=== PATIENT | female | born 1990 | race Caucasian/White ===

== ENCOUNTER 2019-05-12 10:07 | Inpatient (IN) ==
[2019-05-12] MEDS ORDERED: Oxytocin 20 units/ LR 1000 mL 20 UNIT/1,000 ML BAG IVC ONE (10:33)
[2019-05-12] MEDS ORDERED: Famotidine 20 MG/2 ML VIAL IVP ONE (10:33)
[2019-05-12] MEDS ORDERED: Metoclopramide 10 MG/2 ML VIAL IVP ONE (10:33)
[2019-05-12] MEDS ORDERED: Ringers Solution, Lactated 1,000 ML IVC ONE (10:33)
[2019-05-12] MEDS ORDERED: CeFAZolin Syr 3,000MG/30 ML 3,000 MG/30 ML SYRINGE IVPB ONE (10:33)
[2019-05-12] MEDS ORDERED: Naloxone 0.4 MG/ML INJ IVP PRN (10:44)
[2019-05-12] MEDS ORDERED: Famotidine 20 MG/2 ML VIAL IVP PRN (10:44)
[2019-05-12] MEDS ORDERED: Metoclopramide 10 MG/2 ML VIAL IVP PRN (10:44)
[2019-05-12] MEDS ORDERED: Ondansetron 4 MG/2 ML VIAL IVP PRN (10:44)
[2019-05-12] MEDS ORDERED: Oxytocin 20 units/ LR 1000 mL 20 UNIT/1,000 ML BAG IVC SCH (10:45)
[2019-05-12] MEDS ORDERED: Ringers Solution, Lactated 1,000 ML IVC SCH (10:45)
[2019-05-12] MEDS ORDERED: D5% in Lactated Ringers 1,000 ML IVC SCH (10:45)
--- NOTE | 2019-05-12 10:51 | OB/GYN History & Physical ---
Date of Encounter: 05/12/19 Time of Encounter: 10:47 Assessment and Plan (1) 39 weeks gestation of Current visit: Yes Status: Acute (2) Obesity complicating in third trimester Current visit: Yes Status: Acute (3) complicated by subutex maintenance, antepartum Current visit: Yes Status: Acute (4) Encounter for planned induction of labor Current visit: Yes Status: Acute Lyon-cytotec indution is planned for this term patient with obesity who is now cephalic with EFM in anticipation of vaginal delivery History of Present Illness Chief complaint: Patient presents for , primary, for breech HPI: Ms. South is a 29 year old female G1 at 39 1/7 weeks presents to labor and delivery for primary for breech. She denies any contractions, vaginal bleeding, or leaking fluid. She reports excellent movement. SHe has been having more vaginal pressure she has noticed. Her is complicated by marijuana and suboxone use prior to the . She has since entered the Baby Cent[facility] recovery and is doing well. Past Med Surg Social Fam HX - Past Medical History Source: patient Medical history: non-contributory Additional medical history: chronic back pain Psychiatric history: anxiety, depression - Past Surgical History Surgical History: orthopedic, other (laminectomy ), bariatric surgery Additional surgical history: cyst removed from wrist - Social History Smoking Status: Current every day smoker Smokeless Tobacco Status: Yes (vapor cigs) Drug use: marijuana, prescription drug abuse Current living situation: Home - Independent Activity Level: Independent ambulation Obstetrical History - Pregnancies : 1 Medications and Allergies Buprenorphine HCl [Subutex] 8 mg SL BID 05/12/19 [History] Docusate [Colace] 100 mg PO BID 05/12/19 [History] Pnv95/Ferrous Fumarate/FA [ Vitamin Tablet] 1 each PO DAILY 05/12/19 [History] Allergy/AdvReac Type Severity Reaction Status Date / Time NSAIDS (Non-Steroidal AdvReac See Verified 04/07/15 11:58 Anti-Inflamma Comments tramadol AdvReac Vomiting Verified 04/07/15 11:58 Review of System OB All systems PM: reviewed and no additional remarkable complaints except as stated - Constitutional Constitutional ROS IM: no anorexia, no chills, no fever(s) - Gastrointestinal Gastrointestinal: no abdominal pain, no nausea, no vomiting - Menstruation Menstruation: amenorrhea Exam - Constitutional Constitutional: well developed, well nourished, no acute distress, obese - HEENT HEENT: EOMI, Mucus Membranes Moist - Lungs Respiratory exam: CTAB - Cardiovascular Cardiovascular exam: RRR - Abdomen Abdomen: Present: bowel sounds normal, gravid, non tender - Vulva Vulva: bilateral: normal - Vagina Vagina: Present: normal moisture - Cervix Dilation: 1 Effacement: 0 Station: -4 - Anus/Rectum Anus/Rectum: Present: normal perianal skin - Comments Comments: Bedside ultrasound confirms cephalic presentation
[2019-05-12 11:18] LABS: Basophils % 0.2 %; Eosinophils % 0.4 %; Hematocrit 40.9 % (35.3-44.9); Hemoglobin 13.7 g/dL (11.5-15.4); Immature Granulocytes % 0.6 % (0-4); Lymphocytes # 1.5 K/mcL (0.6-4.6); Mean Corpuscular HGB Conc 33.5 g/dL (31.6-35.5); Mean Corpuscular Hemoglobin 29.8 pg (28.0-33.3); Mean Corpuscular Volume 88.9 fL (83.0-100.0); Mean Platelet Volume 12.9 fL (9.4-12.4); Monocytes % 10.2 %; Neutrophils # 7.4 K/mcL (1.6-8.9); Platelet Count 183 K/mcL (140-400); Red Cell Distribution Width 13.9 % (11.5-14.5); Segmented Neutrophils % 73.6 %; White Blood Count 10.1 K/mcL (4.3-11.1)
[2019-05-12 11:32] LABS: Amphetamine Screen,Urine Negative ng/mL (Cutoff=1000); Barbiturate Screen,Urine Negative ng/mL (Cutoff=200); Benzodiazepines Screen,Urine Negative ng/mL (Cutoff=200); Cannabinoid Screen,Urine Negative ng/mL (Cutoff = 50); Cocaine Screen,Urine Negative ng/mL (Cutoff= 300); Opiate Screen,Urine Negative ng/mL (Cutoff=300); Phencyclidine Screen,Urine Negative ng/mL (Cutoff=25)
[2019-05-12] MEDS ORDERED: *HR* FentaNYL (PF) 100 MCG/2 ML VIAL IVP PRN (11:45)
[2019-05-12] MEDS ORDERED: *HR* Buprenorphine HCl 8 MG TAB.SUBL SL SCH ×2 (11:46→21:00)
--- NOTE | 2019-05-12 12:36 | OB Labor Progress Note ---
Date of Encounter: 05/12/19 Time of Encounter: 12:34 Labor Progress Note - Subjective Subjective: Patient denies any concerns - Cervix Cervix: /-3 - Heart Tones Heart Tones: 120's category 1 - [place]: patient denies any contractions. - Interventions Interventions: Double Cook catheter placed with 60 ml intrauterine and 40 ml in the vaginal balloon
[2019-05-12] MEDS: miSOPROStol 25 MCG TABLET PO SCH ×2 (12:40→16:50)
--- NOTE | 2019-05-12 13:57 | Anesthesia Evaluation PreOp ---
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 History: Paresis (LLE), Other (s/p L3-L5 laminectomy w/ residual LLE radiculopathy and chronic lumbar spine pain) Other Medical History: Other (anxiety/depression) Anesthesia History: No Prior Anesthetic Complications (never had NA; denies personal and family h/o GA complications), Past Anesthesia (bariatric surgery, L3-L5 laminectomy, cyst removal from wrist) : Yes Alcohol Use: none Drug use: marijuana, prescription drug abuse Medications and Allergies Buprenorphine HCl [Subutex] 8 mg SL BID 05/12/19 [History] Docusate [Colace] 100 mg PO BID 05/12/19 [History] Pnv95/Ferrous Fumarate/FA [ Vitamin Tablet] 1 each PO DAILY 05/12/19 [History] Allergy/AdvReac Type Severity Reaction Status Date / Time NSAIDS (Non-Steroidal AdvReac See Verified 05/12/19 11:45 Anti-Inflamma Comments tramadol AdvReac Vomiting Verified 05/12/19 11:45 - Meds/Allergy Pre-op Review Medications Reviewed: Yes Allergies Reviewed: Yes Beta Blockers on Current Med List: No Anesthesia Results - Labs 05/12/19 10:55 Anesthesia Exam 137/91, HR 61 O2 Sat Height 1.65 m Weight 128.99 kg NPO (# of Hours): solids > 8hrs Pain Scale: 0 Pain Scale Used: Numeric (1 - 10) - HEENT Pupil (Motor): Pupils equal Mallampati: II Teeth: Normal Oral Opening: Greater than 3 - DIRECTOR OF CARDIAC REHABILITATION LOC: Oriented DIRECTOR OF CARDIAC REHABILITATION Motor: Normal RUE, Normal LUE, Normal RLE, Normal Face, Deficit LLE DIRECTOR OF CARDIAC REHABILITATION Sensory: Normal: RUE, LUE, RLE, LLE, Face - Cardiac Rhythm: Regular Murmur: None - Pulmonary Breath Sounds: bilateral Clear Respiratory Effort: Symmetrical Anesthesia Assess/Plan ASA Score: 3 Level of consciousness: Cooperative, Oriented, Tranquil Anesthetic Plan: Epidural Autologous Blood: No Monitoring Plan: Standard Monitors Recovery Plan: Other
[2019-05-12] MEDS ORDERED: Bupivacaine-MPF 0.25% 10 ML VIAL EP ONE (13:58)
[2019-05-12] MEDS ORDERED: EPHEDrine 50 MG/ML VIAL IVP PRN (13:58)
[2019-05-12] MEDS ORDERED: *HR* FentaNYL (PF) 100 MCG/2 ML VIAL EP ONE (13:58)
[2019-05-12] MEDS ORDERED: Epidural Premix (fent/bupiv) 110 ML EP SCH (14:00)
[2019-05-12] MEDS ORDERED: Bupivacaine-MPF 0.25% 10 ML VIAL ONE (14:22)
[2019-05-12] MEDS ORDERED: *HR* FentaNYL (PF) 100 MCG/2 ML VIAL ONE (14:22)
[2019-05-12] MEDS ORDERED: Nicotine 21 MG PATCH.TD24 TD SCH (16:00)
[2019-05-12] MEDS: Acetaminophen 325 MG TABLET PO SCH (17:08)
--- NOTE | 2019-05-12 22:33 | Anesthesia Procedures ---
Date of Encounter: 05/12/19 Time of Encounter: 22:26 Procedures: Anesthesia - Epidural/Spinal Patient ID/Chart reviewed: Yes Patient examined: Yes OB Eval: Gestational age: 39 weeks 1 day OB Eval: : 1 OB Eval: Hx Para: 0 OB Eval: Dilated at (cm): 5 OB Eval: Contractions: Non-stressed pattern Consent Obtained: Yes Supplemental Oxygen: None/Room Air Site Prep: Aseptic Technique, Sterile prep and drape, 0.5% Chlorhexidine/Alcohol Patient position: upright Local Anesthetic: Lidocaine 1% Amount of Local Anesthetic used: 3 Touhy Needle Gauge: 18 Touhy Needle Depth (cm): 7 Catheter Depth at Skin (cm): 12 Test Dose (1.5% Lido + Epi): Volume given (mls): 3 Test Dose Result: Positive Loading Dose: 0.25% Marcaine (mls): 1 Loading Dose: Fentanyl (mcg): 10 Loading Dose Administered: Thru Catheter Infusion Med: 0.125% Bupivacaine w/ 2 mcg/ml Fentanyl Infusion Rate (mls/hr): 1 (actually 1.5mL/hr w/ demand bolus of 0.5mL q30min PRN) Catheter Secured in Place: Tegaderm, Tape Interspace Used: L2-L3 Loss of Resistance (KIMMIE): No Blood: No CSF: Yes Paresthesia: No Procedure: was unable to "feel" ligaments with midline approach. Very little resistance to needle advancement until patient felt bilateral LE paresthesias. Stylet removed and slow trickle of clear fluid noted coming out of the hub of [place]. Patient reports BLE paresis and paresthesia in response to only 3mL of test dose. Catheter placed and labeled extensively as "Intrathecal catheter". ELA Duran notified and instructed to pass information along in report that catheter should remain in place for 24 hours after delivery and to minimize pushing during 2nd stage of labor. Patient counseled on S&S of PDPH and ways to minimize severity such as leaving catheter in place, early ambulation after delivery, fluid intake, OTC analgesics, caffeine, and to decrease visual and auditory stimulation should a MCCORD develop. Also instructed patient that if these conservative measures fail, an epidural blood patch may be indicated. Pt verbalized understanding. VSS. Patient tolerated procedure well. Vitals + FHT's: See Renee MAHMOOD's electronic records for VS entry
--- NOTE | 2019-05-12 23:29 | OB Labor Progress Note ---
Date of Encounter: 05/12/19 Time of Encounter: 23:26 Labor Progress Note - Subjective Subjective: Patient is comfortable after her epidural - Cervix Cervix: 5/80/-3 - Heart Tones Heart Tones: 120, variable decels noted with contractions - [place]: q 2 minutes - Interventions Interventions: AROM with clear fluid. IUPC and FSE placed without difficulty.
--- NOTE | 2019-05-13 01:22 | Anesthesia Progress Note ---
Date of Encounter: 05/13/19 Time of Encounter: 01:19 Anesthesia Note - Note Note: Called to patient bedside to evaluate breakthrough pain. Patient reports that her BLE blockade is gone and that she is now feeling her contractions. Catheter now noted to be at 11cm jefe at skin. intermittent boluses q5-10min given for a total of 90mcg fentanyl & 10mL of 0.125% bupivicaine. Infusion rate also increased with each bolus to final setting of 10mL/hr & demand bolus of 4mL q 30min PRN. VSS. Patient reports that the analgesia is sufficient enough for her to breathe through her contractions. 05/13/19 01:19
--- NOTE | 2019-05-13 03:07 | Anesthesia Progress Note ---
Date of Encounter: 05/13/19 Time of Encounter: 02:15 Anesthesia Note - Note Note: called to patient bedside for breakthrough pain; catheter now appears to be at 10cm jefe at skin; despite additional 5mL of 1.5% lid0 w/ 1:200k epinephrine, patient reports no improvement in pain; decision made to remove catheter; confirmed blue tip intact. VSS 05/13/19 03:06
--- NOTE | 2019-05-13 03:10 | Anesthesia Procedures ---
Date of Encounter: 05/13/19 Time of Encounter: 03:08 Procedures: Anesthesia - Epidural/Spinal Patient ID/Chart reviewed: Yes Patient examined: Yes OB Eval: : 1 OB Eval: Hx Para: 0 OB Eval: Dilated at (cm): 6 OB Eval: Contractions: Non-stressed pattern Consent Obtained: Yes Supplemental Oxygen: None/Room Air Site Prep: Aseptic Technique, Sterile prep and drape, 0.5% Chlorhexidine/Alcohol Patient position: upright Local Anesthetic: Lidocaine 1% Amount of Local Anesthetic used: 5 Touhy Needle Gauge: 18 Touhy Needle Depth (cm): 8 Catheter Depth at Skin (cm): 15 Test Dose (1.5% Lido + Epi): Volume given (mls): 5 Test Dose Result: Negative Loading Dose: 0.25% Marcaine (mls): 5 Loading Dose Administered: Thru Catheter Infusion Med: 0.125% Bupivacaine w/ 2 mcg/ml Fentanyl Catheter Secured in Place: Tegaderm, Tape Interspace Used: L2-L3 Loss of Resistance (KIMMIE): Yes Blood: No CSF: No Paresthesia: No Procedure: successful on 2nd attempt (first attempt at L3/4); patient tolerated procedure well; VSS Vitals + FHT's: see Renee MAHMOOD's electronic records for VS entry
[2019-05-13] MEDS ORDERED: 0.9 % Sodium Chloride 500 ML ONE (04:36)
[2019-05-13] MEDS ORDERED: 0.9 % Sodium Chloride 1,000 ML ONE (05:20)
[2019-05-13] MEDS: Acetaminophen 325 MG TABLET PO SCH (05:31)
[2019-05-13] MEDS ORDERED: Oxytocin 20 units/ LR 1000 mL 20 UNIT/1,000 ML BAG IVC ONE (07:04)
[2019-05-13] MEDS ORDERED: Oxytocin 20 units/ LR 1000 mL 20 UNIT/1,000 ML BAG IVC SCH ×2 (07:15→12:04)
[2019-05-13] MEDS ORDERED: Lidocaine/EPI 1:200k 2% PF 20 ML VIAL ONE (07:56)
[2019-05-13] MEDS ORDERED: *HR* Phenylephrine 10 MG/ML VIAL ONE (07:56)
[2019-05-13] MEDS ORDERED: Lidocaine -MPF 2% 5 ML VIAL ONE (07:57)
--- NOTE | 2019-05-13 09:00 | OB/GYN Procedure Note ---
Section - Date of procedure: 05/13/19 Preop diagnosis: category 3 FHT tracing Post-op diagnosis: same Procedure: section, primary low transverse Surgeon: Dalia Mandel Blood Loss: 500 Was there an first assistant present: Yes Inspector Returned Materials: Clemencia Weir Anesthesiologist: Carlie Jeffers Psychologist: Darrel Bhat Anesthesia Type: Epidural section complications: none Disposition: L&D Recovery Room Specimens: Cord gasses - Infant (s) Infant A Delivery Date: 05/13/19 Delivery Time: 08:01 Presentation: vertex Route of delivery: Gender: Male Viability: Viable Pounds: 5 Ounces: 6 at 1 minute: 9 at 5 minutes: 9 Specimens collected: cord blood, venous cord gases, arterial cord gases Placenta: spontaneous Cord: 3 umbilical vessels - Narrative Narrative: Patient was taken to the operative suite and her epidural was dosed.. She was then prepped and draped in normal sterile fashion in the dorsal supine position. Timeout was then performed. Antibiotics were given by anesthesia. SCDs are on and active. Pfannenstiel skin incision is then made and carried through to underlying layer of fascia with the Bovie. The fascia was then incised in the midline and incision extended laterally with the Brunson scissors. The fascia was tented up and dissected off the rectus muscles sharply. The rectus muscles were in the midline and the peritoneum was tented up and entered sharply with the Metzenbaum scissors. The peritoneal incision was then extended bluntly. The bladder blade was then inserted and the vesicouterine peritoneum was identified. A low transverse uterine incision was then made. The vertex was brought to the incision and the was delivered using fundal pressure. There was no nuchal cord. Cord was clamped and cut. Infant was handed to waiting nursery staff. Placenta delivered spontaneously complete and intact with a three-vessel cord. The uterus was cleared of all clots and debris using moist laparotomy sponge. The uterine incision was then closed using 0 Vicryl in a running locked fashion. A second layer of the same suture was used to obtain excellent hemostasis. The abdomen was then cleared of all clots and debris using copious irrigation. The fascial incision was then closed using 0 PDS looped in a running fashion. The skin was closed using 4-0 Vicryl in a subcuticular fashion. Steri-Strips and Mónica dressing are then placed. Mother and infant taken to recovery in stable condition.
[2019-05-13] MEDS ORDERED: Metoclopramide 10 MG/2 ML VIAL IVP PRN (12:04)
[2019-05-13] MEDS ORDERED: Sennosides 8.6 MG TABLET PO PRN (12:04)
[2019-05-13] MEDS ORDERED: Simethicone 80 MG TAB.CHEW PO PRN (12:04)
[2019-05-13] MEDS ORDERED: Ondansetron 4 MG/2 ML VIAL IVP PRN (12:04)
[2019-05-13] MEDS ORDERED: *HR* OxyCODONE/APAP 5/325 TABLET PO PRN (12:04)
[2019-05-13] MEDS ORDERED: Naloxone 0.4 MG/ML INJ IVP PRN (12:04)
[2019-05-13] MEDS: cephALEXin 500 MG CAPSULE PO SCH ×2 (13:17→20:19)
[2019-05-13] MEDS: Acetaminophen 325 MG TABLET PO PRN ×2 (13:17→20:19)
[2019-05-13] MEDS: *HR* Buprenorphine HCl 8 MG TAB.SUBL SL SCH ×2 (13:18→20:20)
[2019-05-13] MEDS: metroNIDAZOLE 500 MG TABLET PO SCH ×2 (13:19→20:18)
[2019-05-13] MEDS: Prenatal Vit/FA 1 EACH TABLET PO SCH (13:21)
[2019-05-13] MEDS: *HR* OxyCODONE Immed Rel 5 MG TABLET PO PRN ×2 (16:57→20:20)
[2019-05-13] MEDS: Nicotine 21 MG PATCH.TD24 TD SCH (17:01)
[2019-05-13] MEDS: *HR* Enoxaparin 40 MG/0.4 ML SYRINGE SQ SCH (20:21)
--- NOTE | 2019-05-14 06:27 | Anesthesia Evaluation Post Op ---
Date of Encounter: 05/14/19 Time of Encounter: 11:00 - Vital Signs Vital Signs: Vital Signs Temperature 97.4 F L 05/13/19 11:00 Pulse Rate 58 05/13/19 11:00 Respiratory Rate 14 05/13/19 11:00 Blood Pressure 117/71 05/13/19 11:00 O2 Sat by Pulse Oximetry 100 05/13/19 11:00 Temperature 98.1 F 05/14/19 03:31 Pulse Rate 67 05/14/19 03:31 Respiratory Rate 16 05/14/19 03:31 Blood Pressure 126/83 05/14/19 03:31 O2 Sat by Pulse Oximetry 97 05/14/19 03:31 - Lungs Lungs: Clear Ascult./Percussion - Airway Airway: Non-obstructed - Cardiovascular Regular Rate - Mental Status Mental Status: Alert & Oriented, Answers Appropriately - Pain Pain Scale: 3 Pain Scale used: Numeric (1 - 10) - Nausea Vomiting Nausea Vomiting: Not Present - Hydration Hydration: NPO, Lyon catheter - Discharge PostOp Status: Transfer Patient to floor
[2019-05-14] MEDS: *HR* OxyCODONE Immed Rel 5 MG TABLET PO PRN ×2 (06:34→14:44)
[2019-05-14] MEDS: Nicotine 21 MG PATCH.TD24 TD SCH (08:30)
[2019-05-14] MEDS: Prenatal Vit/FA 1 EACH TABLET PO SCH (08:30)
[2019-05-14] MEDS: cephALEXin 500 MG CAPSULE PO SCH ×3 (08:31→20:31)
[2019-05-14] MEDS: metroNIDAZOLE 500 MG TABLET PO SCH ×2 (08:31→20:31)
[2019-05-14] MEDS: *HR* Buprenorphine HCl 8 MG TAB.SUBL SL SCH ×2 (08:32→20:32)
[2019-05-14] MEDS: *HR* Enoxaparin 40 MG/0.4 ML SYRINGE SQ SCH ×2 (08:32→20:33)
--- NOTE | 2019-05-14 11:05 | OB/GYN Progress Note ---
Date of Encounter: 05/14/19 Time of Encounter: 11:01 - Assessment and Plan (1) Status post primary low transverse section Current Visit: Yes Status: Acute Meeting all day 1 milestones Continue routine care Anticipate discharge to guest tomorrow Subjective - Subjective Principal diagnosis: s/p PLTCS Interval history: Feeling well. Out of bed without dizziness. Some abdominal discomfort-using binder. Cramping minimal, using ibuprofen and Percocet. every 2- 3 hours. Some nipple soreness. Voiding without difficulty. Passing flatus, no BM yet. Tolerating clear liquid diet. Patient reports: appetite normal, voiding normally, pain well controlled, ambulating normally, nauseated [place]: doing well, bottle feeding Objective - Vital Signs Latest vital signs: Vital Signs Temp Pulse Resp BP Pulse Ox 05/14/19 08:06 98 F 75 16 124/84 95 05/14/19 03:31 98.1 F 67 16 126/83 97 05/13/19 23:55 98.3 F 72 16 118/81 95 05/13/19 19:30 98.4 F 66 14 132/84 98 05/13/19 15:42 97.9 F 55 16 129/77 05/13/19 14:00 98.5 F 55 16 128/66 05/13/19 13:00 98.6 F 56 16 133/81 05/13/19 12:45 16 05/13/19 12:00 98.1 F 55 16 130/83 05/13/19 11:43 97.7 F 54 16 122/73 05/13/19 11:30 97.7 F 54 16 122/73 Intake and Output 05/13/19 05/14/19 05/14/19 23:59 07:59 15:59 Intake Total 240 / 240 800 / 800 Output Total 1850 / 2650 2100 / 2300 200 / 2300 Balance -1610 / -2410 -1300 / -1500 -200 / -1500 Intake: Oral 240 / 240 800 / 800 Output: Urine 200 / 200 Catheter 1850 / 2650 2099 / 2100 Other: Meal Dinner Percent of Meal Consumed 100% - Exam Lungs: bilateral: normal Chest: Normal S1, Normal S2 Extremities: Present: normal Abdomen: Present: normal appearance, soft Incision: Present: normal, dry, intact, dressed Uterus: Present: normal, firm Fundal Height: 2 (below and midline)
[2019-05-14] MEDS: Acetaminophen 325 MG TABLET PO PRN (11:38)
[2019-05-15] MEDS: *HR* OxyCODONE Immed Rel 5 MG TABLET PO PRN ×3 (02:01→11:00)
[2019-05-15] MEDS: cephALEXin 500 MG CAPSULE PO SCH (08:37)
[2019-05-15] MEDS: Prenatal Vit/FA 1 EACH TABLET PO SCH (08:37)
[2019-05-15] MEDS: *HR* Buprenorphine HCl 8 MG TAB.SUBL SL SCH (08:37)
[2019-05-15] MEDS: metroNIDAZOLE 500 MG TABLET PO SCH (08:37)
[2019-05-15] MEDS: *HR* Enoxaparin 40 MG/0.4 ML SYRINGE SQ SCH (08:38)
[2019-05-15 09:15] VITALS: BP 112/74
--- NOTE | 2019-05-15 13:40 | Discharge Summary ---
Date of Encounter: 05/15/19 Time of Encounter: 13:37 - Discharge Diagnosis (1) complicated by subutex maintenance, antepartum Priority: Secondary Status: Acute (2) Status post primary low transverse section Priority: Primary Status: Acute Comments: Stable, meeting all PP milestones, pain well managed, bleeding minimal, in SCN - Discharge Medications Prescriptions: New cephALEXin [Keflex] 500 mg PO TID #9 capsule metroNIDAZOLE [Flagyl] 500 mg PO BID #6 tablet Nicotine Patch [Nicoderm] 21 mg TD DAILY patch.td24 Acetaminophen [Tylenol] 325 mg PO Q6HR PRN tablet PRN Reason: Fever/Pain Buprenorphine HCl [Subutex] 16 mg SL BID tab.subl Docusate [Colace] 100 mg PO BID #30 capsule Simethicone [Gas-X] 80 mg PO TID PRN tab.chew PRN Reason: Dyspepsia Continued Docusate [Colace] 100 mg PO BID Pnv95/Ferrous Fumarate/FA [ Vitamin Tablet] 1 each PO DAILY Discontinued Buprenorphine HCl [Subutex] 8 mg SL BID Home Medications: Docusate [Colace] 100 mg PO BID 05/12/19 [History] Pnv95/Ferrous Fumarate/FA [ Vitamin Tablet] 1 each PO DAILY 05/12/19 [History] Acetaminophen [Tylenol] 325 mg PO Q6HR PRN tablet 05/15/19 [Rx] Buprenorphine HCl [Subutex] 16 mg SL BID tab.subl 05/15/19 [Rx] Docusate [Colace] 100 mg PO BID #30 capsule 05/15/19 [Rx] Nicotine Patch [Nicoderm] 21 mg TD DAILY patch.td24 05/15/19 [Rx] Simethicone [Gas-X] 80 mg PO TID PRN tab.chew 05/15/19 [Rx] cephALEXin [Keflex] 500 mg PO TID #9 capsule 05/15/19 [Rx] metroNIDAZOLE [Flagyl] 500 mg PO BID #6 tablet 05/15/19 [Rx] Allergies/Adverse Reactions: Allergy/AdvReac Type Severity Reaction Status Date / Time NSAIDS (Non-Steroidal AdvReac See Verified 05/12/19 11:45 Anti-Inflamma Comments tramadol AdvReac Vomiting Verified 05/12/19 11:45 Data Procedures and tests throughout hospitalization: Laboratory Tests 05/12/19 05/12/19 10:55 10:55 WBC 10.1 RBC 4.60 Hgb 13.7 Hct 40.9 MCV 88.9 MCH 29.8 MCHC 33.5 RDW 13.9 Plt Count 183 MPV 12.9 H Immature Gran % 0.6 Seg Neutrophils % 73.6 Lymphocytes % 15.0 Monocytes % 10.2 Eosinophils % 0.4 Basophils % 0.2 Neutrophils # 7.4 Lymphocytes # 1.5 Monocytes # 1.0 Eosinophils # 0.0 Basophils # 0.0 Urine Opiates Screen Negative Ur Buprenorphine Scrn Positive H Ur Barbiturates Screen Negative Ur Phencyclidine Scrn Negative Ur Amphetamines Screen Negative U Benzodiazepines Scrn Negative Urine Cocaine Screen Negative U Marijuana (THC) Screen Negative Ur Drug Screen Interp See Below Date of admission: 05/12/19 10:07 Primary care physician: PCP NONE Consults: 05/12/19 10:46 Consult to Router Setter (W&C) [CONS] Routine Reason For Exam: Reason for SW Consult: patient is in baby centered recovery 05/12/19 12:04 Consult to Router Setter (W&C) [CONS] Routine Reason For Exam: Reason for SW Consult: THC in , S/I history, subutex, off of probation 03/2018 Discharging clinician: Ymaile Morales Anticipated date of discharge: 05/15/19 - Patient Status Disposition: Home, Self-Care Condition: Good Functional capacity at discharge: independent ambulation Overall status at discharge: patient is progressing back to baseline - Discharge Instructions Follow Up With: NONE,PCP [Primary Care Provider] - - Diet and Activity Activity: resume usual activities as tolerated Diet: regular diet Hospital Course Reason for admission: active labor Delivery: section Episiotomy: none Laceration: none Other procedures: none complications: none Discharge diagnosis: IUP at term delivered Hospital course: Section - Date of procedure: 05/13/19 Preop diagnosis: category 3 FHT tracing Post-op diagnosis: same Procedure: section, primary low transverse Surgeon: Dalia Taylor Quantitated Blood Loss: 500 Was there an occupational therapy assistant present: Yes Telephone Operator: Clemencia Weir Anesthesiologist: Carlie Jeffers Fertilizing Machine Operator: Darrel Bhat Anesthesia Type: Epidural section complications: none Disposition: L&D Recovery Room Specimens: Cord gasses - Infant (s) A Delivery Date: 05/13/19 Infant Delivery Time: 08:01 Presentation: vertex Route of delivery: Gender: Male Viability: Viable Pounds: 5 Ounces: 6 at 1 minute: 9 at 5 minutes: 9 Specimens collected: cord blood, venous cord gases, arterial cord gases Placenta: spontaneous Cord: 3 umbilical vessels Stable in PP and appropriate for discharge Time Attestation: Total time spent providing and/or coordinating discharge services: Time Spent: Less than 30 minutes - VTE Documentation of Mechanical Device: Intermittent pneumatic compression device Exam - Constitutional Vitals: Temp Pulse Resp BP Pulse Ox 98.1 F 77 16 112/74 96 05/15/19 09:07 05/15/19 09:07 05/15/19 09:07 05/15/19 09:07 05/15/19 09:07 General appearance IM: A&O X 3 - Respiratory Respiratory exam: Present: CTAB - Cardiovascular Cardiovascular exam IM: Present: RRR - GI/Abdominal GI/Abdominal exam IM: soft Incision: dressed (MICHELLE in place ) - Uterine Tone: Firm Uterus Position: At Umbilicus - Extremities Exam Extremities exam IM: Present: normal capillary refill, normal inspection - Neurological Exam Neurological exam: normal gait, oriented X3 - Psychiatric Additional comments: reports good mood
== END 2019-05-15 18:00 | disposition home or self-care (01) | DRG 540 ==
LOC: 1NENULAB 10:07 → 1NENUOBS 05-13 10:35
PROVIDERS: ADMIT Obstetrics & Gynecology; ATTEND Obstetrics & Gynecology